=== PATIENT | male | born 1960 | race African-American/Black ===

== ENCOUNTER 2020-05-27 22:43 | Inpatient (IN) | payer MEDICARE, MEDICAID ==
[~2020-05-27] VITALS: Ht 190.5 cm; Wt 101.6 kg
[2020-05-27] MEDS ORDERED: cefTRIAXone 1 GM in NS 55 ML IV ONE (23:00)
[2020-05-27] MEDS ORDERED: Azithromycin 500 MG in NS 275 ML IVPB ONE (23:00)
[2020-05-27 23:15] VITALS: BP 118/79
--- NOTE | 2020-05-27 23:15 | NUR ---
Nurse Note: PT walked in c/o increasingly shortness of breath sicne 4 days. Pt stated he was at rest. 83% in triage. Pt stated he took a covid tested one week ago and tested negative. Pt stated he has diarrhea as well. Pt stated s/s occured after taking the covid test; unk covid exposure.
--- NOTE | 2020-05-27 23:20 | NUR ---
Nurse Note: 18 gauge RT AC est; blood taken. Covid swab collected and sent to lab. Pt attached to rn cardiac rehab; ekg obtained. PT placed on 6L NC; satting at 99% O2.
--- NOTE | 2020-05-27 23:27 | Emergency Room Report ---
History of Present Illness General Chief Complaint: Dyspnea/Respdistress Source: Patient Present Illness [facility] Disclaimer: Please note that this report is being documented using DRAGON technology. This can lead to erroneous entry secondary to incorrect interpretation by the dictating instrument. HPI: 59-year-old male former smoker presents for evaluation of shortness of breath. Symptoms began approximately 2 weeks ago with a dry cough the patient tested negative for COVID-19 5 days ago. Over the past 4 days he had increasing shortness of breath and tachypnea. Denies fever or chills. Denies changes in sense of smell or taste. He reports diarrhea over the past few days but resolved today. Denies abdominal pain, dysuria or hematuria. Patient quit smoking cigar 4 years ago and quit smoking cigarettes over 10 years ago. Denies the use of inhalers. No longer taking medication for cholesterol. States he is borderline diabetic. No known sick contacts. PMH: Prediabetes PSH: Tracheostomy is Allergies: Denied Social Hx: Former smoker Allergies: Coded Allergies: No Known Allergies (Unverified , 05/27/20) COVID-19 Screening Contact w/high risk pt: Yes Experienced COVID-19 symptoms?: Yes COVID-19 Testing performed [facility]IST: Yes COVID-19 Screening: Negative COVID-19 COVID-19 Testing Source: outside source Nursing Documentation-PMH Past Medical History: No Stated History Review of Systems All Other Systems: negative except mentioned in HPI Physical Exam Vital Signs Date Time Temp Pulse Resp B/P (MAP) Pulse Ox O2 Delivery O2 Flow Rate FiO2 05/27/20 22:51 97.5 108 22 118/79 (92) 83 Room Air General: Awake and alert, tachypnea, afebrile HEENT: NC/AT. EOMI. speaking in full sentences Cardiovascular: Tachycardic. No murmur appreciated. Resp: Increased work of breathing. Tachypnea. No cough during exam. Bilateral crackles. No wheezing. Hypoxic on room air improved to 100% on 6 L nasal cannula. Abdomen: Abdomen is soft, nondistended. Nontender Skin: Intact. No abrasions, laceration or rash over the exposed skin MSK: Normal tone and bulk. Moving all extremities. No obvious deformity. Neuro: Awake and alert. Mentating appropriately. Procedures Critical Care Time Critical Care Time Total critical care time: Approximately 45 minutes Due to a high probability of clinically significant, life threatening deterioration, the patient required the highest level of preparedness to intervene emergently and I personally spent this critical care time directly and personally managing the patient. This critical care time included obtaining a history, examining the patient, pulse oximetry, ordering and reviewing studies, ordering treatments, evaluating response to treatment and updating management plan as needed, frequent reassessment and discussion with other providers as well as arranging for ultimate disposition. This critical to care time was performed to assess and manage the high probability of life-threatening deterioration that could result in multiorgan failure. This critical care time is separate from the separately billable procedures and treating other patients. Medical Decision Making Diagnostic Impression: Primary Impression: Hypoxia Additional Impressions: Pneumonia Elevated d-dimer BRANDIE (acute kidney injury) Suspected 2019 novel coronavirus infection ER Course 59-year-old male presents for evaluation shortness of breath. Differential includes is not limited to COVID-19 infection, influenza, pneumonia, bronchitis, pneumothorax, pleural effusion, ACS, PE among others. Strong concern for COVID- 19 infection. X-ray shows bilateral infiltrate consistent with pneumonia. Patient treated empirically with ceftriaxone azithromycin on arrival. Initially hypoxic but improved on nasal cannula. Will start steroids. Rapid COVID-19 testing currently unavailable will perform send out test. Admitted to Dr. Vinson who is panel physician today. Labs show elevated white count at 17,000 with neutrophil predominance. Blood gas within normal limits. Chemistry shows mild renal impairment with creatinine of 1.6 and BUN 24. Lactic acid within normal limits. Inflammatory markers elevated. This would suggest COVID-19 infection though test is not yet resu lted. Dimer significantly elevated greater than 35. Patient given Lovenox. CTA does not reveal pulmonary embolism but confirms pneumonia. Admitted to SDU Laboratory Tests Test 05/27/20 23:00 05/27/20 23:30 05/28/20 00:01 White Blood Count 17.0 K/UL (4.8-10.8) H Red Blood Count 5.28 M/UL (4.70-6.10) Hemoglobin 15.3 G/DL (14.2-18.0) Hematocrit 46.1 % (42.0-52.0) Mean Corpuscular Volume 87 FL (80-99) Mean Corpuscular Hemoglobin 28.9 PG (27.0-31.0) Mean Corpuscular Hemoglobin Concent 33.1 G/DL (32.0-36.0) Red Cell Distribution Width 12.6 % (11.6-14.8) Platelet Count 360 K/UL (150-450) Mean Platelet Volume 6.2 FL (6.5-10.1) L Neutrophils (%) (Auto) 82.2 % (45.0-75.0) H Lymphocytes (%) (Auto) 10.9 % (20.0-45.0) L Monocytes (%) (Auto) 5.1 % (1.0-10.0) Eosinophils (%) (Auto) 1.1 % (0.0-3.0) Basophils (%) (Auto) 0.7 % (0.0-2.0) Prothrombin Time 11.5 SEC (9.30-11.50) Prothrombin Time INR 1.0 (0.9-1.1) Activated Partial Thromboplast Time 26 SEC (23-33) D-Dimer > 35.20 mg/L FEU Sodium Level 141 MMOL/L (136-145) Potassium Level 3.9 MMOL/L (3.5-5.1) Chloride Level 104 MMOL/L (98-107) Carbon Dioxide Level 28 MMOL/L (21-32) Anion Gap 9 mmol/L (5-15) Blood Urea Nitrogen 24 mg/dL (7-18) H Creatinine 1.6 MG/DL (0.55-1.30) H Estimated Glomerular Filtration Rate 53.7 mL/min (>60) Glucose Level 139 MG/DL (74-106) H Lactic Acid Level 1.90 mmol/L (0.4-2.0) Calcium Level 8.9 MG/DL (8.5-10.1) Phosphorus Level 2.5 MG/DL (2.5-4.9) Magnesium Level 2.9 MG/DL (1.8-2.4) H Ferritin 1985 NG/ML (8-388) H Total Bilirubin 0.9 MG/DL (0.2-1.0) Aspartate Amino Transferase (AST) 61 U/L (15-37) H Alanine Aminotransferase (ALT) 84 U/L (12-78) H Alkaline Phosphatase 75 U/L (46-116) Lactate Dehydrogenase 519 U/L (81-234) H Total Creatine Kinase 238 U/L (26-308) Creatine Kinase MB 0.5 NG/ML (0.0-3.6) Creatine Kinase MB Relative Index 0.2 Troponin I 0.000 ng/mL (0.000-0.056) C-Reactive Protein, Quantitative 17.3 mg/dL (0.00-0.90) H Pro-B-Type Natriuretic Peptide 63 pg/mL (0-125) Total Protein 8.2 G/DL (6.4-8.2) Albumin 2.5 G/DL (3.4-5.0) L Globulin 5.7 g/dL Albumin/Globulin Ratio 0.4 (1.0-2.7) L Lipase 570 U/L (73-393) H Urine Color Yellow Urine Appearance Cloudy Urine pH 5 (4.5-8.0) Urine Specific [place] 1.015 (1.005-1.035) Urine Protein 3+ (NEGATIVE) H Urine Glucose (UA) Negative (NEGATIVE) Urine Ketones 1+ (NEGATIVE) H Urine Blood 1+ (NEGATIVE) H Urine Nitrite Negative (NEGATIVE) Urine Bilirubin Negative (NEGATIVE) Urine Urobilinogen 8 MG/DL (0.0-1.0) H Urine Leukocyte Esterase 1+ (NEGATIVE) H Urine RBC 0 /HPF (0 - 0) Urine WBC 0-2 /HPF (0 - 0) Urine Squamous Epithelial Cells Occasional /LPF Urine Bacteria Moderate /HPF (NONE) H Urine Hyaline Casts 2-4 /LPF (NONE) H Urine Mucus Few /LPF (NONE/OCC) H Arterial Blood pH 7.447 (7.350-7.450) Arterial Blood Partial Pressure CO2 34.5 mmHg (35.0-45.0) L Arterial Blood Partial Pressure O2 82.3 mmHg (75.0-100.0) Arterial Blood HCO3 23.3 mmol/L (22.0-26.0) Arterial Blood Oxygen Saturation 95.4 % (95-100) Arterial Blood Base Excess -0.1 (-2-2) Drake Test Positive EKG Diagnostic Results Troponin ordered: Yes When was troponin ordered?: May 27, 2020 EKG Time: 22:59 Rate: tachycardiac Rhythm: NSR Other Impression Sinus tachycardia, normal axis, normal intervals, no ST segment changes. Rhythm Strip Diag. Results Rhythm Strip Time: 22:59 EP Interpretation: yes Rate: 100s Rhythm: NSR, no PVC's, no ectopy Chest X-Ray Diagnostic Results Chest X-Ray Diagnostic Results : Chest X-Ray Ordered: Yes # of Views/Limited/Complete: 1 View Indication: Shortness of Breath EP Interpretation: Yes Interpretation: no effusion, no pneumothorax, other - Bilateral infiltrates Impression: Other - Bilateral pneumonia Electronically Signed by: Electronically signed by Dr. Chris Canales MD CT/MRI/US Diagnostic Results CT/MRI/US Diagnostic Results : Impression IMPRESSION: 1. No pulmonary embolism. 2. Extensive pulmonary findings suggesting viral pneumonia with mild apical predominant patchy groundglass and consolidative opacities; alternatively, other infectious or inflammatory processes could have this appearance. 3. Recommend follow-up unenhanced CT chest in 3 months to document resolution of pulmonary findings. 4. Gallbladder sludge without findings to suggest acute cholecystitis. Radiologist: Lucius Rush MD Electronically Signed: 05/28/20 02:11 Study ready at 02:09 and initial results transmitted at 02:11 Last Vital Signs Date Time Temp Pulse Resp B/P (MAP) Pulse Ox O2 Delivery O2 Flow Rate FiO2 05/27/20 22:51 97.5 108 22 118/79 (92) 83 Room Air Disposition: ADMITTED INPATIENT Condition: Serious Referrals: NOT CHOSEN IPA/,REFERRING (PCP) Chris Canales MD May 27, 2020 23:27
[2020-05-27] MEDS ORDERED: dexAMETHasone 10mg/ml Inj IV ONE (23:30)
--- NOTE | 2020-05-27 23:33 | NUR ---
Nurse Note: Urine collected and sent to lab.
[2020-05-27 23:47] LABS: PARTIAL THROMBOPLASTIN TIME 26 SEC (23-33)
--- NOTE | 2020-05-27 23:57 | NUR ---
Nurse Note: RT at bedside for ABG.
[2020-05-28] VITALS (7 sets, daily range): BP systolic 112–140; BP diastolic 65–93
[2020-05-28 00:04] LABS: BASOPHILS % (AUTO) 0.7 % (0.0-2.0); EOSINOPHILS % (AUTO) 1.1 % (0.0-3.0); HEMATOCRIT 46.1 % (42.0-52.0); HEMOGLOBIN 15.3 G/DL (14.2-18.0); LYMPHOCYTES % (AUTO) 10.9 % (20.0-45.0); MEAN CORPUSCULAR VOLUME 87 FL (80-99); MONOCYTES % (AUTO) 5.1 % (1.0-10.0); NEUTROPHILS % (AUTO) 82.2 % (45.0-75.0); PLATELET COUNT 360 K/UL (150-450); RED BLOOD COUNT 5.28 M/UL (4.70-6.10); RED CELL DISTRIBUTION WIDTH 12.6 % (11.6-14.8)
[2020-05-28 00:14] LABS: ALBUMIN 2.5 G/DL (3.4-5.0); ALBUMIN/GLOBULIN RATIO 0.4 (1.0-2.7); BILIRUBIN,TOTAL 0.9 MG/DL (0.2-1.0); CALCIUM 8.9 MG/DL (8.5-10.1); CKMB 0.5 NG/ML (0.0-3.6); CREATININE 1.6 MG/DL (0.55-1.30); PHOSPHORUS 2.5 MG/DL (2.5-4.9); POTASSIUM 3.9 MMOL/L (3.5-5.1)
[2020-05-28 00:23] LABS: COLOR,URINE YELLOW
[2020-05-28 00:24] LABS: APPEARANCE,URINE CLOUDY; BILIRUBIN, URINE NEGATIVE (NEGATIVE); GLUCOSE, URINE (UA) NEGATIVE (NEGATIVE); KETONES,URINE 1+ (NEGATIVE); LEUKOCYTE ESTERASE ,URINE 1+ (NEGATIVE); NITRITE,URINE NEGATIVE (NEGATIVE); PH,URINE 5 (4.5-8.0); PROTEIN,URINE 3+ (NEGATIVE); UROBILINOGEN,URINE 8 MG/DL (0.0-1.0)
[2020-05-28] MEDS ORDERED: Omnipaque 350 100ml vial INJ PRN (01:00)
[2020-05-28] MEDS ORDERED: Sodium Chloride 3,300 ML IVLG ONE (01:00)
[2020-05-28] MEDS ORDERED: Enoxaparin 100mg Inj SUBQ SCH (01:00)
--- NOTE | 2020-05-28 02:04 | NUR ---
Nurse Note: Pt back from CT; attached to athletic monitor. Pt stated breathing is better at rest; continues to be on 6L NC. Pt denies pain, n/v/d. Pt infusing fluids via LT hand and RT AC.
--- NOTE | 2020-05-28 02:12 | Diagnostic Imaging Report ---
EXAM: CT Angiography Chest With Intravenous Contrast CLINICAL HISTORY: PE TECHNIQUE: Axial computed tomographic angiography images of the chest with intravenous contrast. CTDI is 32.6 mGy and DLP is 558.9 mGy-cm. One or more of the following dose reduction techniques were used: automated exposure control, adjustment of the mA and/or kV according to patient size, use of iterative reconstruction technique. MIP reconstructed images were created and reviewed. Coronal and sagittal reformatted images were created and reviewed. COMPARISON: No relevant prior studies available. FINDINGS: Pulmonary arteries: No pulmonary embolism. Aorta: No acute findings. No thoracic aortic aneurysm. Lungs: Extensive lung findings suggesting viral pneumonia with mild apical predominant patchy groundglass and consolidative opacities; alternatively, other infectious or inflammatory processes could have this appearance. Pleural space: Unremarkable. No significant effusion. No pneumothorax. Heart: Unremarkable. No cardiomegaly. No significant pericardial effusion. No evidence of RV dysfunction. Bones/joints: No acute fracture. No dislocation. Soft tissues: Unremarkable. Lymph nodes: Unremarkable. No enlarged lymph nodes. Gallbladder and bile ducts: Gallbladder sludge without findings to suggest acute cholecystitis. IMPRESSION: 1. No pulmonary embolism. 2. Extensive pulmonary findings suggesting viral pneumonia with mild apical predominant patchy groundglass and consolidative opacities; alternatively, other infectious or inflammatory processes could have this appearance. 3. Recommend follow-up unenhanced CT chest in 3 months to document resolution of pulmonary findings. 4. Gallbladder sludge without findings to suggest acute cholecystitis.
--- NOTE | 2020-05-28 02:21 | NUR ---
Nurse Note: Report given to ANYA Shields for continuity of care. Pt stable and ready for transfer.
--- NOTE | 2020-05-28 02:53 | NUR ---
NURSE NOTES: Received report from ANYA Guerrero. Pt awake in bed, afebrile, coherent and responsive to communication and has no respiratory distress noted. Pt is tachypneic at 24 bpm. On NC at 4lpm and saturating at 98-99%. With right AC 18g and left hand 20g iv lines intact, patent, asymptomatic. Needs were attended. HOB elevated. Call light within reach. Bed wheels are locked and side rails are up. Continue plan of care.
--- NOTE | 2020-05-28 02:55 | NUR ---
NURSE NOTES: Placed a call to Dr Vinson and left a voicemail for admission orders. Awaiting for response. Pt stable and continue to monitor
--- NOTE | 2020-05-28 03:30 | NUR ---
NURSE NOTES: Placed a call to Dr Vinson and left a voicemail for admission orders. Awaiting for response. PT saturating at 98-99% via NC at 4lpm. Pt stable and continue to monitor
--- NOTE | 2020-05-28 04:22 | NUR ---
NURSE NOTES: Called operation supervisor and made aware that Dr Vinson hasn't called back yet for admission orders.
--- NOTE | 2020-05-28 05:00 | NUR ---
NURSE NOTES: Pt asleep in bed but arousable. pt saturating well at 99% via NC at 4lpm. Continue to monitor the patient
--- NOTE | 2020-05-28 06:10 | NUR ---
NURSE NOTES: PT asleep in bed on his left side. Pt saturating at 99%. No discomforts or complains noted.
--- NOTE | 2020-05-28 06:15 | NUR ---
NURSE NOTES: Received a call from Dr Vinson. Admission orders noted and carried out. Pt stable
[2020-05-28] MEDS: D5 1/2NS 1,000 ML IV SCH ×2 (06:23→20:14)
--- NOTE | 2020-05-28 06:57 | NUR ---
CASE MANAGEMENT:REVIEW 59 YR OLD MALE WALKED INTO ER CC: SOB X4 DAYS. DIARRHEA SI: HYPOXIA. PNA. BRANDIE SUSPECTED COVID 97.6 108 22 118/79 83% ON RA WBC+17.0 BUN+24 CR+1.6 CRP+17.3 LIPASE+570 IS: PLACED ON 6L/NC IV AZITHROMYCIN X1 IV ROCEPHIN X1 IV DECADRON X1 1L NS BOLUS X1 CHEST XRAY NOVEL COVID SWAB : TO TELEMETRY UNIT DCP: FROM HOME
--- NOTE | 2020-05-28 07:10 | NUR ---
NURSE HAND-OFF REPORT: Important Events on Shift: new admit. new orders done Patient Status: stable Diet: clear liquid diet Pending Orders: n Pending Results/Labs:n Pending MD notification:n Latest Vital Signs: Temperature 97.8 , Pulse 75 , B/P 119 /65 , Respiratory Rate 21 , O2 SAT 100 , Nasal Cannula, O2 Flow Rate 4.0 . Vital Sign Comment: n EKG Rhythm: Sinus Rhythm Rhythm change?: N MD Notified?: - MD Response: Latest Scott Fall Score: 20 Fall Risk: Low Risk Safety Measures: Call light Within Reach, Bed Alarm Zone 1, Side Rails Side Rails x2, Bed position Low and Locked. Fall Precautions: Yellow Socks Report given to ANYA Horne. endrosed to ff up with Dr Vinson regarding medications and dvt ppx
--- NOTE | 2020-05-28 07:45 | NUR ---
NURSE NOTES: Received report from ANYA ALANIS. Patient is on the bed, awake, responsive, breakfast brought to bed side. On nasal cannula at 4L, tolerating well. Patient is currently on clear liquid diet. Patient has a urinal at bedside, patient is aware to use it. R AC 18 g peripheral line running D5 1/2 NS at 75 cc/hr. and a L H 20 g, patent, intact, saline locked. HOB elevated, bed is on lowest position, side rails up, locked, call light within reach. Patient will continue to be monitored. Will continue plan of care.
--- NOTE | 2020-05-28 10:30 | NUR ---
NURSE HAND-OFF REPORT: Important Events on Shift: stable Patient Status: Diet: Pending Orders: Pending Results/Labs: Pending MD notification: Latest Vital Signs: Temperature 97.5 , Pulse 70 , B/P 140 /88 , Respiratory Rate 20 , O2 SAT 100 , Nasal Cannula, O2 Flow Rate 4.0 . Vital Sign Comment: EKG Rhythm: Sinus Rhythm Rhythm change?: N MD Notified?: - MD Response: Latest Scott Fall Score: 20 Fall Risk: Low Risk Safety Measures: Call light Within Reach, Bed Alarm Zone 2, Side Rails Side Rails x2, Bed position Low and Locked. Fall Precautions: Yellow Socks Yellow Gown Door Sign Patient Fall Education Report given to ANYA Rodgers.
--- NOTE | 2020-05-28 11:58 | Consultation ---
Consult Note Consult Note DATE OF CONSULTATION: 05/28/2020 CONSULTING PHYSICIAN: Arnoldo Membreno MD. ATTENDING PHYSICIAN: Dr. Vinson REASON FOR CONSULTATION: Possible COVID-19 pneumonia, hypoxia on arrival, ex- smoker HISTORY OF PRESENT ILLNESS: This is a 59-year-old male, a former smoker, who presented to the ED for evaluation of shortness of breath x2 weeks with dry cough. Patient reported testing negative for COVID-19 2 weeks ago. Patient reports living by himself and denies sick contact. Patient reports 4 days of diarrhea which has resolved. Patient denies fever, chills, diarrhea, chest pain , shortness of breath, abdominal pain, dysuria or hematuria. Patient reports quitting smoking 4 years ago. He presented with hypoxia on room air which improved to 100% on 6 L nasal cannula. Patient is currently on 4 L nasal cannula saturating at 96 to 97%. According to ER note, chest x-ray was notable for bilateral infiltrates consistent with pneumonia. Patient was treated empirically with ceftriaxone, and azithromycin. He was given Decadron as well in the ER. Patient is currently PUI. Initial laboratory studies are remarkable for leukocytosis with neutrophil predominance, normal blood gas, mild renal failure, and elevated inflammatory markers. Patient was given Lovenox in the ER. CT angio of the chest did not show evidence for pulmonary embolism, however was positive for extensive pulmonary findings with groundglass opacities. Patient was admitted to the hospital for further management of hypoxia and possible COVID-19 pneumonia. PAST MEDICAL HISTORY: Prediabetes MEDICATIONS: Complete list of home medications not available at this time ALLERGIES: No known allergies FAMILY HISTORY: Unknown PERSONAL/SOCIAL HISTORY: Lives alone at home REVIEW OF SYSTEMS: Negative except mentioned in HPI PHYSICAL EXAMINATION: VITAL SIGNS: Blood pressure 135/83, heart rate 76, respiratory rate 20, weight 101 kg, height 190 cm General: Patient laying in bed with normal work of breathing on 4 L nasal cannula, NAD, no coughing HEENT: Head exam reveals that the head is normocephalic, atraumatic without deformity or unusual swelling. Pupils are PERRLA. CHEST AND LUNGS: Crackles, no wheezing CARDIOVASCULAR: Reveals normal S1, S2 without murmurs, rubs, or clicks. ABDOMEN: Soft with no tenderness or organomegaly. RECTAL: Deferred. MUSCULOSKELETAL: There is no tenderness to palpation. Range of motion is normal. NEUROLOGICAL: Alert and oriented x3 , nonfocal LABORATORY DATA: Laboratory testing shows WBC 17, otherwise unremarkable Chemistries show BUN 24, creatinine 1.6, ferritin 1985, AST 61, ALT 84, LDH 519, CRP 17.3, lipase 570 ABG shows PCO2 of 34.5 D-dimer 35.2 Assessment/Plan 1. Pneumonia, possibly from COVID-19, PUI -Agree with broad-spectrum antibiotics - Awaiting repeat COVID-19 test result - Treat presumptively as COVID-19 pt - CT chest is very suggestive of COVID-19 2. Hypoxia on arrival -Patient currently saturating at 96 to 97% on 4 L nasal cannula -We will wean down oxygen today -Patient seen in RL, will transfer to telemetry if respirations continue to be stable on low-flow oxygen - will continue decadron 3. Leukocytosis -Per primary MD 4. Elevated inflammatory markers -CTA negative for PE -We will continue Lovenox 5. Ex-smoker The care for this patient was discussed with my supervising physician. Time spent for this case was approximately 31 minutes. Devon Giraldo May 28, 2020 11:58
--- NOTE | 2020-05-28 12:51 | Diagnostic Imaging Report ---
Procedure: XRAY Chest 1v Reason for study: Reason For Exam: SOB Comparison films: None. FINDINGS: A single one view chest is obtained. Vascularity is normal. There are bilateral peripheral infiltrates. Cardiac and mediastinal silhouette are within normal limits. CP angles are sharp. The bony thorax appears unremarkable. IMPRESSION: Bilateral peripheral infiltrates.
[2020-05-28] MEDS: dexAMETHasone 10mg/ml Inj IV SCH (13:37)
[2020-05-28] MEDS: Enoxaparin 40mg Inj SUBQ SCH (13:38)
--- NOTE | 2020-05-28 19:10 | NUR ---
NURSE HAND-OFF REPORT: Important Events on Shift:Order of transfer to tele Patient Status: Stable Diet: Regular Pending Orders: NA Pending Results/Labs:NA Pending MD notification:NA Latest Vital Signs: Temperature 97.5 , Pulse 86 , B/P 136 /93 , Respiratory Rate 20 , O2 SAT 100 , Nasal Cannula, O2 Flow Rate 4.0 . Vital Sign Comment: Stable EKG Rhythm: Sinus Rhythm Rhythm change?: N MD Notified?: - MD Response: Latest Scott Fall Score: 20 Fall Risk: Low Risk Safety Measures: Call light Within Reach, Bed Alarm Zone 2, Side Rails Side Rails x2, Bed position Low and Locked. Fall Precautions: Yellow Socks Yellow Gown Door Sign Patient Fall Education Report given to ANYA Ford.
--- NOTE | 2020-05-28 19:35 | NUR ---
NURSE NOTES: Received report from ANYA Thomas. AAO x 4, on NC 2L tolerating well. Denies pain or discomfort. Able to make needs known. Using urinal at bedside. IV sites intact and patent. IVF running. Bed locked, lowest position, alarm on, side rails up, call light within reach. Will continue to monitor. Addendum: 05/28/20 at 4 by CHRIS CANAS RN RN Error, received report from Ana Maria
[2020-05-29] VITALS: BP 128/66
--- NOTE | 2020-05-29 00:28 | NUR ---
NURSE NOTES: Pt sleeping, tolerating NC2L, vitals stable. No acute distress noted.
[2020-05-29 04:00] VITALS: BP 145/86
--- NOTE | 2020-05-29 05:56 | NUR ---
NURSE NOTES: Pt was noted SB at 42 the lowest. Checked the patient and asleep. Arousable, no discomfort or complaints when asked. Palpation was done at noted 77 BPM HR. Rechecked the personal care attendant and shows 66-70 when awake. Pt went back to sleep. Continue to monitor the patient.
--- NOTE | 2020-05-29 07:30 | NUR ---
NURSE NOTES:Handoff received from ZEKE and ANYA Thomas. Patient received awake and alert and able to make needs known, no acute signs of distress noted, patient is on NC 2 liters saturating at 100%, air sampling and monitoring is on showing SR, patient is on fall and aspiration precaution with bed in the low and locked position, call light at reach and bed alarm on, patient informed to use call light before getting out of bed. patient is on isolation for Covid PUI, awaiting result. Patient IV site is R AC18G and L hand 20G runnig D51/2NS@75ML/HR. patient uses urinal at bedside. will follow plan of care.
--- NOTE | 2020-05-29 07:33 | NUR ---
NURSE HAND-OFF REPORT: Important Events on Shift:none Patient Status: stable Diet: reg Pending Orders: none Pending Results/Labs: Pending MD notification: Latest Vital Signs: Temperature 97.8 , Pulse 62 , B/P 145 /86 , Respiratory Rate 18 , O2 SAT 100 , Nasal Cannula, O2 Flow Rate 2.0 . Vital Sign Comment: EKG Rhythm: Sinus Rhythm Rhythm change?: N MD Notified?: - MD Response: Latest Scott Fall Score: 20 Fall Risk: Low Risk Safety Measures: Call light Within Reach, Bed Alarm Zone 2, Side Rails Side Rails x2, Bed position Low and Locked. Fall Precautions: Yellow Socks Yellow Gown Door Sign Patient Fall Education Report given to [Ritchie].
[2020-05-29 08:00] VITALS: BP 147/80
[2020-05-29] MEDS: Enoxaparin 40mg Inj SUBQ SCH (08:33)
[2020-05-29] MEDS: dexAMETHasone 10mg/ml Inj IV SCH (08:39)
[2020-05-29] MEDS: D5 1/2NS 1,000 ML IV SCH ×2 (08:41→21:42)
[2020-05-29 12:00] VITALS: BP 142/75
--- NOTE | 2020-05-29 12:02 | Pulmonology Progress Note ---
Subjective ROS Limited/Unobtainable: No Constitutional: Reports: no symptoms HEENT: Repors: no symptoms Respiratory: Reports: no symptoms Cardiovascular: Reports: no symptoms Gastrointestinal/Abdominal: Reports: no symptoms Allergies: Coded Allergies: No Known Allergies (Unverified , 05/27/20) Objective Last 24 Hour Vital Signs Date Time Temp Pulse Resp B/P (MAP) Pulse Ox O2 Delivery O2 Flow Rate FiO2 05/29/20 11:25 Nasal Cannula 2.0 05/29/20 08:00 96.7 61 16 147/80 (102) 100 05/29/20 08:00 Nasal Cannula 2.0 05/29/20 07:36 58 05/29/20 04:00 Nasal Cannula 2.0 05/29/20 04:00 97.8 62 18 145/86 (105) 05/29/20 03:29 53 05/29/20 00:00 97.5 65 18 128/66 (86) 05/29/20 00:00 51 05/29/20 00:00 Nasal Cannula 2.0 05/28/20 20:00 Nasal Cannula 2.0 05/28/20 20:00 63 05/28/20 20:00 97.3 83 18 136/93 (107) 05/28/20 16:00 66 05/28/20 16:00 Nasal Cannula 4.0 05/28/20 16:00 86 05/28/20 16:00 97.5 91 20 136/93 (107) 05/28/20 12:00 70 05/28/20 12:00 Nasal Cannula 4.0 05/28/20 12:00 70 05/28/20 12:00 97.5 76 20 140/88 (105) Intake and Output 05/28/20 05/29/20 19:00 07:00 Intake Total 240 ml 944 ml Output Total 1050 ml Balance 240 ml -106 ml Intake Oral 240 ml 120 ml IV Total 824 ml Output Urine Total 1050 ml General Appearance: no acute distress HEENT: atraumatic Respiratory: lungs clear Cardiovascular: normal rate Abdomen: soft, non tender Microbiology Date/Time Source Procedure Growth Status 05/27/20 23:30 Urine,Clean Catch Urine Culture - Preliminary NO GROWTH Resulted 05/27/20 23:10 Blood Blood Culture - Preliminary NO GROWTH AFTER 24 HOURS Resulted 05/27/20 23:00 Blood Blood Culture - Preliminary NO GROWTH AFTER 24 HOURS Resulted Current Medications Medications (Trade) Dose Ordered Sig/Selin Route PRN Reason Start Time Stop Time Status Last Admin Dose Admin Dexamethasone Sodium Phosphate (Decadron 10mg/ ml Inj) 6 mg DAILY IV 05/28/20 13:00 06/05/20 09:01 05/29/20 08:39 Dextrose/Sodium Chloride 1,000 ml @ 75 mls/hr [id number] IV 05/28/20 06:15 06/27/20 06:14 05/29/20 08:41 Enoxaparin Sodium (Lovenox) 40 mg DAILY SUBQ 05/28/20 13:00 08/26/20 12:59 05/29/20 08:33 Iohexol (Omnipaque 350 100ml) 100 ml NOW PRN INJ Radiology Procedure 05/28/20 01:00 05/30/20 00:59 Levofloxacin 100 ml @ 100 mls/hr Q24H IVPB 05/28/20 08:00 06/04/20 07:59 05/29/20 08:32 Ondansetron HCl (Zofran) 4 mg Q6H PRN IVP Nausea & Vomiting 05/28/20 06:15 06/27/20 06:14 Assessment/Plan Assessment/Plan 1. Pneumonia, possibly from COVID-19, PUI -Agree with broad-spectrum antibiotics - Awaiting repeat COVID-19 test result - Treat presumptively as COVID-19 pt - CT chest is very suggestive of COVID-19 2. Hypoxia on arrival -Patient currently saturating well on low flow oxygen -We will wean off oxygen today - will continue decadron 3. Leukocytosis -Per primary MD 4. Elevated inflammatory markers -CTA negative for PE -We will continue Lovenox 5. Ex-smoker 6. Bradycardia - in the 50s bpm The care for this patient was discussed with my supervising physician. Time spent for this case was approximately 31 minutes. Devon Giraldo May 29, 2020 12:02
--- NOTE | 2020-05-29 15:48 | NUR ---
NURSE NOTES:Paged Dr Vinson to let him know that lab called with a positive COVID-19 PCR test result. Awaiting MD response.
[2020-05-29 16:00] VITALS: BP 143/80
--- NOTE | 2020-05-29 16:18 | NUR ---
NURSE NOTES:Dr Vinson gave TO/RB for physician consult for Dr Howard.
--- NOTE | 2020-05-29 16:42 | General Progress Note ---
Subjective Constitutional: Reports: fever, malaise, weakness HEENT: Reports: no symptoms Cardiovascular: Reports: no symptoms, chest pain Respiratory: Reports: shortness of breath, SOB with excertion Gastrointestinal/Abdominal: Reports: no symptoms Neurologic/Psychiatric: Reports: no symptoms Endocrine: Reports: no symptoms Allergies: Coded Allergies: No Known Allergies (Unverified , 05/27/20) Subjective doing better covid 19 positive Objective Last 24 Hour Vital Signs Date Time Temp Pulse Resp B/P (MAP) Pulse Ox O2 Delivery O2 Flow Rate FiO2 05/29/20 16:00 Nasal Cannula 2.0 05/29/20 12:00 97.7 142 16 142/75 (97) 98 05/29/20 11:47 53 05/29/20 11:25 Nasal Cannula 2.0 05/29/20 08:00 96.7 61 16 147/80 (102) 100 05/29/20 08:00 Nasal Cannula 2.0 05/29/20 07:36 58 05/29/20 04:00 Nasal Cannula 2.0 05/29/20 04:00 97.8 62 18 145/86 (105) 05/29/20 03:29 53 05/29/20 00:00 97.5 65 18 128/66 (86) 05/29/20 00:00 51 05/29/20 00:00 Nasal Cannula 2.0 05/28/20 20:00 Nasal Cannula 2.0 05/28/20 20:00 63 05/28/20 20:00 97.3 83 18 136/93 (107) Intake and Output 05/28/20 05/29/20 19:00 07:00 Intake Total 240 ml 944 ml Output Total 1050 ml Balance 240 ml -106 ml Intake Oral 240 ml 120 ml IV Total 824 ml Output Urine Total 1050 ml Height (Feet): 6 Height (Inches): 3.00 Weight (Pounds): 224 General Appearance: alert EENT: PERRL/EOMI Neck: supple Cardiovascular: regular rhythm Respiratory/Chest: crackles/rales Abdomen: non tender, soft Edema: trace edema Neurologic: alert, oriented x 3 Assessment/Plan Status: doing well Assessment/Plan: covid 19 pna htn dm clementine cont iv abx iv decadrone covid isolation transfer to med surg Evan Vinson MD May 29, 2020 16:42
--- NOTE | 2020-05-29 18:20 | NUR ---
NURSE NOTES: Patient transferred from SDU; I received report from ANYA Dugan; patient alert x4; on nasal cannula 2 liters, no sign of distress and shortness of breath; no sing of chest pain; IV RAC 18G D51/2NS 75cc running; LH 20G flushes well; Urinal within reach; belonging counted and signed by transferring and receiving nurses. Patient have $700; RN offered to put the money in safe, however patient refused; patient isolation for COVID positive; isolation initiated; call light within reach; will carry out the plan of care as planed;
--- NOTE | 2020-05-29 18:21 | NUR ---
NURSE NOTES:Patient transferred to 4W, report given to ANYA Ramirez. Belongings list signed by me and receiving RN. Belongings accounted for minus the keys which were given to patient friend by me this AM, initialed this on the belongings list, patient has $700 in [place], patient declined to have the money stored in the safe.
--- NOTE | 2020-05-29 18:40 | NUR ---
NURSE NOTES: Urinal provided to patient;
--- NOTE | 2020-05-29 19:30 | NUR ---
NURSE HAND-OFF: Important Events on Shift:Hydration, monitoring saturation Patient Status: Diet: Pending Orders: Pending Results/Labs: Pending MD notification: Latest Vital Signs: Temperature 97.9 , Pulse 56 , B/P 143 /80 , Respiratory Rate 16 , O2 SAT 100 , Nasal Cannula, O2 Flow Rate 2.0 . Vital Sign Comment: Latest Scott Fall Score: 20 Fall Risk: Low Risk Safety Measures: Call light Within Reach, Bed Alarm Zone 2, Side Rails Side Rails x2, Bed position Low and Locked. Fall Precautions: Yellow Socks Yellow Gown Door Sign Patient Fall Education Report given to .
--- NOTE | 2020-05-29 19:31 | NUR ---
NURSE NOTES: Received patient in no apparent distress. A&OX4. NC 2L on, no s/s of respiratory distress noted. IV sites are patent and intact. Bed in lowest position. Call light within reach. Will continue to monitor.
[2020-05-29 20:00] VITALS: BP 132/93
[2020-05-30] VITALS: BP 133/88
[2020-05-30 04:00] VITALS: BP 138/80
[2020-05-30 06:58] LABS: BASOPHILS % (AUTO) 0.8 % (0.0-2.0); EOSINOPHILS % (AUTO) 1.1 % (0.0-3.0); HEMATOCRIT 45.8 % (42.0-52.0); HEMOGLOBIN 14.7 G/DL (14.2-18.0); LYMPHOCYTES % (AUTO) 18.4 % (20.0-45.0); MEAN CORPUSCULAR VOLUME 88 FL (80-99); NEUTROPHILS % (AUTO) 73.7 % (45.0-75.0); PLATELET COUNT 440 K/UL (150-450); RED BLOOD COUNT 5.19 M/UL (4.70-6.10); RED CELL DISTRIBUTION WIDTH 12.9 % (11.6-14.8); WHITE BLOOD COUNT 12.2 K/UL (4.8-10.8)
[2020-05-30 07:04] LABS: ANION GAP 9 mmol/L (5-15); BLOOD UREA NITROGEN 18 mg/dL (7-18); CARBON DIOXIDE 25 MMOL/L (21-32); CHLORIDE 108 MMOL/L (98-107); CREATININE 1.2 MG/DL (0.55-1.30); POTASSIUM 4.7 MMOL/L (3.5-5.1); SODIUM 142 MMOL/L (136-145)
--- NOTE | 2020-05-30 07:36 | NUR ---
NURSE HAND-OFF: Important Events on Shift: Patient Status: Diet: Regular Pending Orders: Pending Results/Labs: Pending MD notification: Latest Vital Signs: Temperature 97.9 , Pulse 54 , B/P 138 /80 , Respiratory Rate 18 , O2 SAT 97 , Nasal Cannula, O2 Flow Rate 2.0 . Vital Sign Comment: Latest Scott Fall Score: 20 Fall Risk: Low Risk Safety Measures: Call light Within Reach, Bed Alarm Zone 1, Side Rails Side Rails x2, Bed position Low and Locked. Fall Precautions: Yellow Socks Yellow Gown Door Sign Patient Fall Education Report given to Yadira Martinez RN.
--- NOTE | 2020-05-30 07:40 | NUR ---
NURSE NOTES: Received report from ANYA Gonzáles. Rounding done. Pt a/o x 4, in bed. No SOB noted with NC 2L/min. Denies any pain at this time. D51/2NS running @75ml/hr via Rt AC IV access. Bed in lowest position, call light within reach. Will continue to monitor.
[2020-05-30 08:00] VITALS: BP 132/81
--- NOTE | 2020-05-30 08:30 | NUR ---
NURSE NOTES: RIKY Giraldo ordered weaning off oxygen. Will put it in.
[2020-05-30] MEDS: Enoxaparin 40mg Inj SUBQ SCH (09:00)
[2020-05-30] MEDS: dexAMETHasone 10mg/ml Inj IV SCH (09:00)
[2020-05-30] MEDS: D5 1/2NS 1,000 ML IV SCH ×2 (11:35→22:27)
[2020-05-30 12:00] VITALS: BP 110/62
--- NOTE | 2020-05-30 14:01 | Pulmonology Progress Note ---
Subjective ROS Limited/Unobtainable: No Constitutional: Reports: no symptoms HEENT: Repors: no symptoms Respiratory: Reports: no symptoms Cardiovascular: Reports: no symptoms Gastrointestinal/Abdominal: Reports: no symptoms Allergies: Coded Allergies: No Known Allergies (Unverified , 05/27/20) Objective Last 24 Hour Vital Signs Date Time Temp Pulse Resp B/P (MAP) Pulse Ox O2 Delivery O2 Flow Rate FiO2 05/30/20 12:00 97.9 67 19 110/62 (78) 97 05/30/20 09:00 Nasal Cannula 2.0 05/30/20 08:00 97.7 54 20 132/81 (98) 98 05/30/20 04:00 97.9 54 18 138/80 (99) 97 05/30/20 00:00 97.2 55 18 133/88 (103) 97 05/29/20 21:00 Nasal Cannula 2.0 05/29/20 20:00 97.0 56 18 132/93 (106) 97 05/29/20 16:00 56 05/29/20 16:00 97.9 63 16 143/80 (101) 100 05/29/20 16:00 Nasal Cannula 2.0 Intake and Output 05/29/20 05/30/20 19:00 07:00 Intake Total 435 ml 825 ml Output Total 700 ml 600 ml Balance -265 ml 225 ml Intake Oral 360 ml IV Total 75 ml 825 ml Output Urine Total 700 ml 600 ml # Bowel Movements 1 General Appearance: no acute distress HEENT: atraumatic Respiratory: lungs clear Cardiovascular: normal rate Abdomen: soft, non tender Microbiology Date/Time Source Procedure Growth Status 05/27/20 23:30 Urine,Clean Catch Urine Culture - Final NO GROWTH AFTER 48 HOURS Complete 05/27/20 23:10 Blood Blood Culture - Preliminary NO GROWTH AFTER 48 HOURS Resulted 05/27/20 23:00 Nasopharynx Coronavirus COVID-19 PCR (PETEY) - Final Complete 05/27/20 23:00 Blood Blood Culture - Preliminary NO GROWTH AFTER 48 HOURS Resulted Laboratory Tests 05/30/20 06:05: White Blood Count 12.2H, Red Blood Count 5.19, Hemoglobin 14.7, Hematocrit 45.8, Mean Corpuscular Volume 88, Mean Corpuscular Hemoglobin 28.2, Mean Corpuscular Hemoglobin Concent 32.0, Red Cell Distribution Width 12.9, Platelet Count 440, Mean Platelet Volume 6.6, Neutrophils (%) (Auto) 73.7, Lymphocytes (%) (Auto) 18.4L, Monocytes (%) (Auto) 6.0, Eosinophils (%) (Auto) 1.1, Basophils (%) (Auto) 0.8, Sodium Level 142, Potassium Level 4.7, Chloride Level 108H, Carbon D ioxide Level 25, Anion Gap 9, Blood Urea Nitrogen 18, Creatinine 1.2, Estimat Glomerular Filtration Rate > 60, Glucose Level 101, Calcium Level 9.0 Current Medications Medications (Trade) Dose Ordered Sig/Selin Route PRN Reason Start Time Stop Time Status Last Admin Dose Admin Dexamethasone Sodium Phosphate (Decadron 10mg/ ml Inj) 6 mg DAILY IV 05/28/20 13:00 06/05/20 09:01 05/30/20 09:00 Dextrose/Sodium Chloride 1,000 ml @ 75 mls/hr [id number] IV 05/28/20 06:15 06/27/20 06:14 05/29/20 21:42 Enoxaparin Sodium (Lovenox) 40 mg DAILY SUBQ 05/28/20 13:00 08/26/20 12:59 05/30/20 09:00 Levofloxacin 100 ml @ 100 mls/hr Q24H IVPB 05/28/20 08:00 06/04/20 07:59 05/30/20 08:59 Ondansetron HCl (Zofran) 4 mg Q6H PRN IVP Nausea & Vomiting 05/28/20 06:15 06/27/20 06:14 Assessment/Plan Assessment/Plan 1. COVID-19 Pneumonia -s/p broad-spectrum antibiotics - CT chest is very suggestive of COVID-19 2. Hypoxia on arrival -Patient currently saturating well on low flow oxygen -We will wean off oxygen today - will continue decadron for now; if respirations stable on room air, consider discontinuing 3. Leukocytosis -Per primary MD - improving 4. Elevated inflammatory markers -CTA negative for PE -We will continue Lovenox 5. Ex-smoker 6. Bradycardia - in the 50s bpm The care for this patient was discussed with my supervising physician. Time spent for this case was approximately 31 minutes. Devon Giraldo May 30, 2020 14:01
[2020-05-30 16:00] VITALS: BP 130/72
--- NOTE | 2020-05-30 17:01 | General Progress Note ---
Subjective Allergies: Coded Allergies: No Known Allergies (Unverified , 05/27/20) Subjective doing better covid 19 positive Objective Last 24 Hour Vital Signs Date Time Temp Pulse Resp B/P (MAP) Pulse Ox O2 Delivery O2 Flow Rate FiO2 05/30/20 16:00 97.9 60 20 130/72 (91) 98 05/30/20 12:00 97.9 67 19 110/62 (78) 97 05/30/20 09:00 Room Air 2.0 05/30/20 08:00 97.7 54 20 132/81 (98) 98 05/30/20 04:00 97.9 54 18 138/80 (99) 97 05/30/20 00:00 97.2 55 18 133/88 (103) 97 05/29/20 21:00 Nasal Cannula 2.0 05/29/20 20:00 97.0 56 18 132/93 (106) 97 Intake and Output 05/29/20 05/30/20 19:00 07:00 Intake Total 435 ml 825 ml Output Total 700 ml 600 ml Balance -265 ml 225 ml Intake Oral 360 ml IV Total 75 ml 825 ml Output Urine Total 700 ml 600 ml # Bowel Movements 1 Laboratory Tests 05/30/20 06:05: White Blood Count 12.2H, Red Blood Count 5.19, Hemoglobin 14.7, Hematocrit 45.8, Mean Corpuscular Volume 88, Mean Corpuscular Hemoglobin 28.2, Mean Corpuscular Hemoglobin Concent 32.0, Red Cell Distribution Width 12.9, Platelet Count 440, Mean Platelet Volume 6.6, Neutrophils (%) (Auto) 73.7, Lymphocytes (%) (Auto) 18.4L, Monocytes (%) (Auto) 6.0, Eosinophils (%) (Auto) 1.1, Basophils (%) (Auto) 0.8, Sodium Level 142, Potassium Level 4.7, Chloride Level 108H, Carbon Dioxide Level 25, Anion Gap 9, Blood Urea Nitrogen 18, Creatinine 1.2, Estimat Glomerular Filtration Rate > 60, Glucose Level 101, Calcium Level 9.0 Height (Feet): 6 Height (Inches): 3.00 Weight (Pounds): 224 General Appearance: alert EENT: PERRL/EOMI Neck: normal inspection Cardiovascular: regular rhythm Respiratory/Chest: crackles/rales Abdomen: non tender, soft Extremities: non-tender Assessment/Plan Status: doing well Assessment/Plan: covid 19 pna htn dm clementine cont iv abx iv decadrone covid isolation transfer to med surg Evan Vinson MD May 30, 2020 17:01
--- NOTE | 2020-05-30 19:36 | NUR ---
NURSE HAND-OFF: Important Events on Shift: Wean off oxygen Patient Status: stable Diet: regular Pending Orders: n/a Pending Results/Labs:n/a Pending MD notification:n/a Latest Vital Signs: Temperature 97.9 , Pulse 60 , B/P 130 /72 , Respiratory Rate 20 , O2 SAT 98 , Nasal Cannula, O2 Flow Rate . Vital Sign Comment: stable Latest Scott Fall Score: 20 Fall Risk: Low Risk Safety Measures: Call light Within Reach, Bed Alarm Zone 1, Side Rails Side Rails x2, Bed position Low and Locked. Fall Precautions: Yellow Socks Yellow Gown Door Sign Patient Fall Education Report given to ANYA Schumacher.
--- NOTE | 2020-05-30 19:37 | NUR ---
NURSE NOTES: Patient in bed, awake and alert x4. On room air with no signs of distress or SOB. Iv intact and running IVF as ordered. Bed in lowest position, call light within reach. Will continue to monitor.
[2020-05-30 20:00] VITALS: BP 137/75
[2020-05-31] VITALS: BP 109/61
[2020-05-31 04:00] VITALS: BP 114/75
--- NOTE | 2020-05-31 05:09 | Cardiology Report ---
APPROVED REPORT EKG Measurement Heart [id number] CT 150P51 [id number] <Conclusion> Sinus tachycardia Possible Left atrial enlargement Nonspecific T wave abnormality Abnormal ECG
--- NOTE | 2020-05-31 06:15 | NUR ---
NURSE HAND-OFF: Important Events on Shift: No acute events Patient Status: Stable Diet: Reg Pending Orders: N/A Pending Results/Labs: Blood culture, Urine culture Pending MD notification: N/A Latest Vital Signs: Temperature 98.2 , Pulse 55 , B/P 114 /75 , Respiratory Rate 20 , O2 SAT 96 , Nasal Cannula, O2 Flow Rate . Vital Sign Comment: N/A Latest Scott Fall Score: 20 Fall Risk: Low Risk Safety Measures: Call light Within Reach, Bed Alarm Zone 1, Side Rails Side Rails x2, Bed position Low and Locked. Fall Precautions: Yellow Socks Yellow Gown Door Sign Patient Fall Education
--- NOTE | 2020-05-31 07:40 | NUR ---
NURSE NOTES: Report received from Winsome and patient in bed aao x4, does not show s/s of respiratory distress or pain. IV intact, dry, patent, running and asymptomatic. Patient had a normal soft bowel movement this morning. Bed in lowest position and locked, bed alarm on, side rails up x2. Call light within reach. Will continue to monitor.
[2020-05-31 08:00] VITALS: BP 128/83
[2020-05-31] MEDS: dexAMETHasone 10mg/ml Inj IV SCH (09:21)
[2020-05-31] MEDS: Enoxaparin 40mg Inj SUBQ SCH (09:22)
[2020-05-31 12:00] VITALS: BP 135/77
[2020-05-31] MEDS ORDERED: Tubing IV Secondary IV ONE (12:15)
[2020-05-31] MEDS ORDERED: D5 1/2NS 1000ml IV ONE (12:15)
--- NOTE | 2020-05-31 14:28 | NUR ---
CASE MANAGEMENT:REVIEW 05/31/20 SI: COVID PNEUMONIA 97.5 59 18 128/83 98% ON RA IS: IV DECADRON QD IV LEVAQUIN Q24 IVF@75/HR LOVENOX SQ QD : MED/SURG STATUS DCP: RETURN TO [facility]IOR LIVING [facility]RANGEMENTS
--- NOTE | 2020-05-31 14:38 | Pulmonology Progress Note ---
Subjective ROS Limited/Unobtainable: No Constitutional: Reports: no symptoms HEENT: Repors: no symptoms Respiratory: Reports: no symptoms Cardiovascular: Reports: no symptoms Gastrointestinal/Abdominal: Reports: no symptoms Allergies: Coded Allergies: No Known Allergies (Unverified , 05/27/20) Objective Last 24 Hour Vital Signs Date Time Temp Pulse Resp B/P (MAP) Pulse Ox O2 Delivery O2 Flow Rate FiO2 05/31/20 12:00 97.7 88 18 135/77 (96) 98 05/31/20 09:00 Room Air 05/31/20 08:00 97.5 59 18 128/83 (98) 95 05/31/20 04:00 98.2 55 20 114/75 (88) 96 05/31/20 00:00 97.5 58 20 109/61 (77) 96 05/30/20 21:00 Room Air 05/30/20 20:00 98.1 59 24 137/75 (95) 96 05/30/20 16:00 97.9 60 20 130/72 (91) 98 Intake and Output 05/30/20 05/31/20 19:00 07:00 Intake Total 1120 ml Output Total 1000 ml 800 ml Balance 120 ml -800 ml Intake Oral 720 ml IV Total 400 ml Output Urine Total 1000 ml 800 ml General Appearance: no acute distress HEENT: atraumatic Respiratory: lungs clear Cardiovascular: normal rate Abdomen: soft, non tender Current Medications Medications (Trade) Dose Ordered Sig/Selin Route PRN Reason Start Time Stop Time Status Last Admin Dose Admin Dextrose/Sodium Chloride 1,000 ml @ 75 mls/hr [id number] IV 05/28/20 06:15 06/27/20 06:14 05/30/20 22:27 Enoxaparin Sodium (Lovenox) 40 mg DAILY SUBQ 05/28/20 13:00 08/26/20 12:59 05/31/20 09:22 Levofloxacin 100 ml @ 100 mls/hr Q24H IVPB 05/28/20 08:00 06/04/20 07:59 05/31/20 09:21 Ondansetron HCl (Zofran) 4 mg Q6H PRN IVP Nausea & Vomiting 05/28/20 06:15 06/27/20 06:14 Assessment/Plan Assessment/Plan 1. COVID-19 Pneumonia -s/p broad-spectrum antibiotics 2. Hypoxia on arrival -Pt now on room air - will dc dexamethasone as he remains stable on room air 3. Leukocytosis -Per primary MD - improving 4. Elevated inflammatory markers -CTA negative for PE -We will continue Lovenox 5. Ex-smoker 6. Bradycardia - in the 50s bpm Medically stable for discharge from pulmonary standpoint The care for this patient was discussed with my supervising physician. Time spent for this case was approximately 31 minutes. Devon Giraldo May 31, 2020 14:38
[2020-05-31] MEDS: D5 1/2NS 1,000 ML IV SCH (15:02)
[2020-05-31 16:00] VITALS: BP 120/66
--- NOTE | 2020-05-31 16:27 | General Progress Note ---
Subjective Allergies: Coded Allergies: No Known Allergies (Unverified , 05/27/20) Subjective doing better covid 19 positive Objective Last 24 Hour Vital Signs Date Time Temp Pulse Resp B/P (MAP) Pulse Ox O2 Delivery O2 Flow Rate FiO2 05/31/20 12:00 97.7 88 18 135/77 (96) 98 05/31/20 09:00 Room Air 05/31/20 08:00 97.5 59 18 128/83 (98) 95 05/31/20 04:00 98.2 55 20 114/75 (88) 96 05/31/20 00:00 97.5 58 20 109/61 (77) 96 05/30/20 21:00 Room Air 05/30/20 20:00 98.1 59 24 137/75 (95) 96 Intake and Output 05/30/20 05/31/20 19:00 07:00 Intake Total 1120 ml Output Total 1000 ml 800 ml Balance 120 ml -800 ml Intake Oral 720 ml IV Total 400 ml Output Urine Total 1000 ml 800 ml Height (Feet): 6 Height (Inches): 3.00 Weight (Pounds): 224 General Appearance: no apparent distress EENT: PERRL/EOMI Neck: supple Cardiovascular: regular rhythm Respiratory/Chest: lungs clear Abdomen: non tender, soft Assessment/Plan Status: doing well Assessment/Plan: covid 19 pna htn dm clementine cont iv abx iv decadrone covid isolation transfer to med surg sd plan home Evan Vinson MD May 31, 2020 16:27
--- NOTE | 2020-05-31 17:00 | NUR ---
NURSE NOTES: RN left a message to Dr. Howard for clearance for patient's discharge per Dr. Vinson's request. No further order at this time.
[2020-05-31] MEDS ORDERED: MULTI-VITAMIN1 EACH PO (17:48)
[2020-05-31] MEDS ORDERED: LEVOFLOXAC250 MG/10 PO (17:50)
--- NOTE | 2020-05-31 18:12 | NUR ---
NURSE NOTES: Patient is ready for discharge but the family does not want patient to be discharged tonight because of weather. RN notified Dr. Vinson if the patient can be tomorrow morning instead. No further at this time. RN will endorse it to the next shift nurse.
--- NOTE | 2020-05-31 18:31 | NUR ---
NURSE NOTES: Discharge prescriptions is stored in the patient's chart.
--- NOTE | 2020-05-31 19:22 | NUR ---
NURSE HAND-OFF: Important Events on Shift:discharge order:patient to quarantine in his house for 5 more days, follow up with Dr. Vinson in a week; prescription orders in the patient's chart Patient Status: stable Diet: regular Pending Orders: discharge Pending Results/Labs:urine, blood culture Pending MD notification: Latest Vital Signs: Temperature 98.8 , Pulse 71 , B/P 120 /66 , Respiratory Rate 18 , O2 SAT 98 , Nasal Cannula, O2 Flow Rate . Vital Sign Comment: stable Latest Scott Fall Score: 20 Fall Risk: Low Risk Safety Measures: Call light Within Reach, Bed Alarm Zone 1, Side Rails Side Rails x2, Bed position Low and Locked. Fall Precautions: Yellow Socks Yellow Gown Door Sign Patient Fall Education Report given to ANYA Lincoln.
--- NOTE | 2020-05-31 19:45 | NUR ---
NURSE NOTES: Received report from Pete JOYNER. Patient is awake, alert, and oriented x4. On room air, breathing is even and unlabored. No complains of pain or distress noted. IV right AC intact and patent with no bleeding noted. IVF running as ordered. Bed low and locked. Call light within reach.
[2020-05-31 20:00] VITALS: BP 119/97
[2020-06-01] VITALS: BP 123/91
[2020-06-01] MEDS: D5 1/2NS 1,000 ML IV SCH (03:00)
[2020-06-01 04:00] VITALS: BP 120/87
--- NOTE | 2020-06-01 07:30 | NUR ---
NURSE HAND-OFF: Important Events on Shift: D/C ready Patient Status: Stable Diet: Regular Pending Orders: [] Pending Results/Labs:[] Pending MD notification:[] Latest Vital Signs: Temperature 97.9 , Pulse 93 , B/P 120 /87 , Respiratory Rate 16 , O2 SAT 97 , Nasal Cannula, O2 Flow Rate . Vital Sign Comment: VS stable Latest Scott Fall Score: 20 Fall Risk: Low Risk Safety Measures: Call light Within Reach, Bed Alarm Zone 1, Side Rails Side Rails x2, Bed position Low and Locked. Fall Precautions: Yellow Socks Yellow Gown Door Sign Patient Fall Education Report given to Donell JOYNER.
[2020-06-01 08:00] VITALS: BP 101/55
--- NOTE | 2020-06-01 08:00 | NUR ---
NURSE NOTES: Received am report. pt is in the bed eating breakfast, tolerates meal well. denies any chest pain and discomfort. pt is A&O X4. IV fluid running. no acute distress noted at this time. call light within reach.
[2020-06-01] MEDS: Enoxaparin 40mg Inj SUBQ SCH (09:14)
--- NOTE | 2020-06-01 10:39 | Pulmonology Progress Note ---
Subjective ROS Limited/Unobtainable: No Constitutional: Reports: no symptoms HEENT: Repors: no symptoms Respiratory: Reports: no symptoms Cardiovascular: Reports: no symptoms Gastrointestinal/Abdominal: Reports: no symptoms Allergies: Coded Allergies: No Known Allergies (Unverified , 05/27/20) Objective Last 24 Hour Vital Signs Date Time Temp Pulse Resp B/P (MAP) Pulse Ox O2 Delivery O2 Flow Rate FiO2 06/01/20 09:00 Room Air 06/01/20 08:00 98.2 88 20 101/55 (70) 96 06/01/20 04:00 97.9 93 16 120/87 (98) 97 06/01/20 00:00 97.7 85 17 123/91 (102) 98 05/31/20 21:00 Room Air 05/31/20 20:00 97.9 90 17 119/97 (104) 98 05/31/20 16:00 98.8 71 18 120/66 (84) 98 05/31/20 12:00 97.7 88 18 135/77 (96) 98 Intake and Output 05/31/20 06/01/20 19:00 07:00 Intake Total 525 ml 990 ml Output Total 600 ml 1100 ml Balance -75 ml -110 ml Intake Oral 240 ml IV Total 525 ml 750 ml Output Urine Total 600 ml 1100 ml # Voids 3 4 General Appearance: no acute distress HEENT: atraumatic Respiratory: lungs clear Cardiovascular: normal rate Abdomen: soft, non tender Current Medications Medications (Trade) Dose Ordered Sig/Selin Route PRN Reason Start Time Stop Time Status Last Admin Dose Admin Dextrose/Sodium Chloride 1,000 ml @ 75 mls/hr [id number] IV 05/28/20 06:15 06/27/20 06:14 06/01/20 03:00 Enoxaparin Sodium (Lovenox) 40 mg DAILY SUBQ 05/28/20 13:00 08/26/20 12:59 06/01/20 09:14 Levofloxacin 100 ml @ 100 mls/hr Q24H IVPB 05/28/20 08:00 06/04/20 07:59 06/01/20 09:11 Ondansetron HCl (Zofran) 4 mg Q6H PRN IVP Nausea & Vomiting 05/28/20 06:15 06/27/20 06:14 Assessment/Plan Assessment/Plan 1. COVID-19 Pneumonia -s/p broad-spectrum antibiotics 2. Hypoxia on arrival -Pt now on room air - off dexamethasone as he remains stable on room air 3. Leukocytosis -Per primary MD - improving 4. Elevated inflammatory markers -CTA negative for PE -We will continue Lovenox 5. Ex-smoker 6. Bradycardia - in the 50s bpm when he sleeps Medically stable for discharge from pulmonary standpoint Plan for dc today per primary MD The care for this patient was discussed with my supervising physician. Time spent for this case was approximately 31 minutes. Devon Giraldo Jun 01, 2020 10:39
--- NOTE | 2020-06-01 11:30 | NUR ---
NURSE NOTES: pt is discharged home at this time. prior discharge, pt is provided with discharge teaching, and medications instructions; educated pt the need to quarantine for 5 days per MD's order. pt verbalized understanding. pt signs Inventory paper, left with all his belongings. IV line and ID band removed. pt is escorted to the lobby, left via a private vehicle accompanied by a male friend.
--- NOTE | 2020-06-02 19:44 | Consultation ---
DATE OF CONSULTATION: 05/31/2020 INFECTIOUS DISEASES CONSULTATION REFERRING PHYSICIAN: Dr. Vinson. REASON FOR CONSULTATION: To rule out COVID-19 pneumonia. HISTORY OF PRESENTING ILLNESS: This is a 59-year-old gentleman with history of prediabetes, hypercholesterolemia, who comes in with cough and shortness of breath. He was found to have COVID-19 pneumonia and an Infectious Diseases consultation has been obtained for antibiotics. PAST MEDICAL HISTORY: 1. History of prediabetes. 2. Hypercholesterolemia. SOCIAL HISTORY: He used to be a smoker. He does not smoke anymore. He used to drink alcohol. He does not drink anymore. No history of drug use. FAMILY HISTORY: Noncontributory. REVIEW OF SYSTEMS: RESPIRATORY: No fever or chills. He does have shortness of breath. No cough. No chest pain. CARDIAC: No chest pain. No palpitation. No dizziness. No syncope. GI: No nausea. No vomiting. No abdominal pain. He does have diarrhea. : No dysuria. No hematuria. MEDICATIONS: As an inpatient, he is on dexamethasone, enoxaparin, Levaquin, Zofran. ALLERGIES: No known drug allergies. PHYSICAL EXAMINATION: VITAL SIGNS: Temperature of 97.5, T-max of 98.2, pulse of 59, respiratory rate 18, blood pressure 128/83, O2 saturation of 95% on room air. Examination deferred due to COVID-19. LABS: White count of 17 yesterday, white count of 12.2 today, hemoglobin 14.7, hematocrit 45.8, MCV 88, platelet count of 440, neutrophils of 73%. Sodium 142, potassium 4.7, chloride 108, bicarb 25, BUN 18, creatinine 1.2, glucose 101, calcium of 9, total bilirubin 0.9, ferritin 1985, AST 61, ALT 84, alkaline phosphatase 75, LDH 519. CK of 238, CK-MB 0.5. Troponin 0. C-reactive protein 17.3. Beta natriuretic peptide 63. Total protein 8.2. Albumin 2.5. Lipase of 570. UA is showing 0 to 2 white cells. Urine cultures are negative. Blood cultures are negative. 05/27/2020 COVID-19 test is positive. Chest x-ray showing bilateral peripheral infiltrates. CT chest angiogram showed no evidence of pulmonary embolism, viral pneumonia with mild apical predominant patchy ground-glass and consolidative opacities noted. Gallbladder sludge without findings to suggest cholecystitis. ASSESSMENT: This is a 59-year-old gentleman with history of prediabetes and hypercholesterolemia, who comes in with shortness of breath and diarrhea and is found to have. 1. COVID-19 pneumonia. He is on room air with 95% O2 saturation. 2. Prediabetes. 3. Hypercholesterolemia. 4. Pancreatitis. PLAN: 1. Continue dexamethasone day 5. 2. Continue Levaquin. 3. Continue isolation. 4. We will follow up the patient clinically. I would like to thank Dr. Vinson for this consultation. Kelly Howard M.D. DR: JOSEPH JOB#: [id number] CC: William Vinson M.D.; Fax#: [phone]
--- NOTE | 2020-06-03 01:44 | History and Physical Report ---
DATE OF ADMISSION: 05/27/2020 HISTORY OF PRESENT ILLNESS: This is a 59-year-old male who came to the emergency room for shortness of breath, hypoxia. The patient was suspected COVID-19 and has pneumonia, also has acute renal failure. He has elevated D-dimer. PAST MEDICAL HISTORY: Significant for hypertension. ALLERGIES: NKA. MEDICATIONS: See the list. PHYSICAL EXAMINATION: GENERAL: This is an elderly male who is currently awake and comfortable. VITAL SIGNS: Blood pressure is 119/65, pulse 85, respirations are 21, temp is 97.8. HEENT: AT/NC. EOMI. PERRLA. NECK: Supple. No JVD. CHEST: Bilateral few crackles. CARDIOVASCULAR: Regular rhythm. No gallop. No murmur. ABDOMEN: Soft. Positive bowel sounds. Nontender. EXTREMITIES: No edema. GENITOURINARY: Deferred. LABORATORY DATA: White counts are 27,000, hemoglobin 15, hematocrit 46, and platelets are 360. Chemistry panel, BUN 24, creatinine 1.6, glucose 139. Ferritin level 1985. LDH . Troponins are negative. C-reactive protein 17. His urine, 3+ protein, 1+ ketone, 1+ blood, 8+ urobilinogen, positive leukocyte esterase, and moderate hyaline cast. IMAGING: CT of thorax showing no pulmonary embolism, extensive pulmonary findings suggesting viral pneumonia with mild atypical predominant patchy ground-glass consolidation inflammatory process requiring a followup CT, gallbladder sludge findings to suggest acute cholecystitis. ASSESSMENT: 1. COVID pneumonia. 2. Hypoxia. 3. UTI. 4. Dehydration. PLAN: We will currently add IV fluid, Levaquin, and Lovenox. Continue Decadron and ceftriaxone. Consider pulmonary consult. William Vinson M.D. DR: JOHN JOB#: [id number] CC:
--- NOTE | 2020-06-06 12:47 | Discharge Summary ---
Discharge Summary Discharge Summary _ Date of admission: 05/27/2020 Date of discharge: 06/01/[address] Vinson History of Present Illness and Brief Hospital Course Mr. Hood is a 59-year-old male, a former smoker, who presented to the ED for evaluation of shortness of breath x2 weeks with dry cough. Patient reported testing negative for COVID-19 2 weeks prior to presentation. Patient also reported 4-day history of diarrhea which had resolved by the time of presentation. Patient was hypoxic on room air and was placed on low-flow oxygen via nasal cannula with subsequent improvement. Chest x-ray was notable for bilateral infiltrates consistent with pneumonia. Patient was treated empirically with ceftriaxone, and azithromycin in ER. He was also given Decadron and Lovenox. CT angiogram of the chest did not show evidence of pulmonary embolism, however was positive for extensive pulmonary findings with groundglass opacities. Patient was admitted to the hospital for further management of hypoxia and possible COVID-19 pneumonia. For his pneumonia, patient received antibiotics and steroid. He tested positive for COVID-19 via PCR. His hypoxia soon improved over the next few days and patient was able to tolerate room air. Steroid was discontinued as he remained stable on room air. Overall, patient quickly recovered from hypoxia with initial supplemental oxygen, empiric antibiotics, and steroids. Patient was medically stable for discharge and was discharged home on 06/01/2020. Consultants: Infectious disease Dr. Howard Pulmonology Dr. Membreno Discharge Condition Improved and stable Final diagnoses COVID-19 pneumonia Prediabetes Hypercholesterolemia Pancreatitis Leukocytosis Ex-smoker Bradycardia Hypoxic respiratory failure I have been assigned to dictate discharge summary for this account. Devon Giraldo Jun 06, 2020 12:46
== END 2020-06-01 11:30 | disposition home or self-care (01) | DRG 177 ==
LOC: EMR 23:06 → 2W 23:12 → EDBEDREQ 05-28 02:16 → 4E 05-29 17:55
DX: U07.1 COVID-19 (principal); J12.82 Pneumonia due to coronavirus disease 2019; K85.90 Acute pancreatitis without necrosis or infection, unspecified; J96.91 Respiratory failure, unspecified with hypoxia; N17.9 Acute kidney failure, unspecified; N39.0 Urinary tract infection, site not specified; Z87.891 Personal history of nicotine dependence; R09.02 Hypoxemia; E86.0 Dehydration; R73.03 Prediabetes; E78.00 Pure hypercholesterolemia, unspecified; R00.1 Bradycardia, unspecified; I10 Essential (primary) hypertension
CPT/HCPCS: 36415; 71045; 71275; 80048; 80053; 81003; 82550; 82553; 82728; 82803; 82962; 83605; 83615; 83690; 83735; 83880; 84100; 84484; 85025; 85379; 85610; 85730; 86140; 87040; 87086; 93005; 96361; 96365; 96367; 96375; 99291; J7030